=== PATIENT | male | born 2000 | race Two or more races ===

== ENCOUNTER 2024-12-03 06:53 | Emergency (ER) | payer SELFPAY ==
[2024-12-03 06:54] VITALS: BMI 25.1
[2024-12-03 07:31] VITALS: BP 137/77; PULSE 72; RESP 16; TEMP 37.1; O2SAT 98
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
[2024-12-03] MEDS: TETRACAINE PF OP SOL 0.5% 4 ML DRPETTE 1 DROP BOTH EYES (08:41)
== END 2024-12-03 09:30 | disposition home or self-care (01) ==
PROVIDERS: Emergency Provider Emergency Medicine; PCP Family Medicine
DX: H16.133 Photokeratitis, bilateral (principal)
CPT/HCPCS: 99282